=== PATIENT | female | born 1990 | race Caucasian/White ===

== ENCOUNTER 2017-04-22 11:57 | Emergency (ER) | payer OTHER ==
[2017-04-22 12:04] VITALS: RESP 16; TEMP 98.6
--- NOTE | 2017-04-22 12:12 | EDPHY ---
H & P Stated Complaint: pt states her iud is dislodged Time Seen by Provider: 04/22/17 12:05 HPI/ROS: CHIEF COMPLAINT: Possible IUD displacement HISTORY OF PRESENT ILLNESS: 27-year-old female with history of IUD placement in [place] in January 2017 states that for the past few days she feels that her IUD has been displaced, she is able to feel the hard tip of it outside of her cervix. She has also been complaining of abnormal vaginal discharge is foul smelling as well as suprapubic cramping. No urinary abnormality. Her symptoms have been occurring for the past 2-3 days. Patient also notes several days of vaginal itching and discharge. No vaginal bleeding. Not currently on her menstrual period. Back or flank pain. No nausea or vomiting. No dyspareunia REVIEW OF SYSTEMS: A ten point review of systems was performed and is negative with the exception of the items mentioned in the HPI PAST MEDICAL & SURGICAL HISTORY: IUD placement January 2017 SOCIAL HISTORY:nonsmoker PHYSICAL EXAM (Prior to examination, patient consented to physical exam, hands were washed and my usual and customary physical exam procedures followed) 1) GENERAL: Well-developed, well-nourished, alert and oriented. Appears to be in no acute distress. 2) HEAD: Normocephalic, atraumatic 3) HEENT: Sclera anicteric. 4) NECK: Full range of motion, no meningeal signs. 5) LUNGS: Clear auscultation bilaterally. 6) HEART: Regular rate and rhythm, no murmur, no heave, no gallop. 7) ABDOMEN: No guarding, no rebound, no focal tenderness, negative McBurney's, negative Joshi's, negative Rovsing's, negative peritoneal sign, unable to elicit any abdominal pain on exam 8) MUSCULOSKELETAL: No peripheral edema or discoloration. 9) BACK: No CVA tenderness,. 10) PELVIC (with female tech Emy at bedside): Normal female external genitalia, no lesions visualized. There is chunky white discharge. Speculum examination reveals erythematous route day, e, os closed, no cervical motion tenderness, no adnexal tenderness or mass, DIFFERENTIAL DIAGNOSIS: in no particular include but limited to tubo-ovarian abscess, displacement IUD, ovarian cyst, ovarian torsion, UTI - Personal History LMP (Females 10-55): IUD In Place Current Tetanus/Diphtheria Vaccine: Unsure - Medical/Surgical History Hx Asthma: Yes Hx Chronic Respiratory Disease: No Hx Diabetes: No Hx Cardiac Disease: No Hx Renal Disease: No Hx Cirrhosis: No Hx Alcoholism: No Hx HIV/AIDS: No Hx Splenectomy or Spleen Trauma: No Other PMH: denies - Social History Smoking Status: Never smoked Constitutional: Initial Vital Signs Temperature (C) 37 C 04/22/17 12:01 Heart Rate 84 04/22/17 12:01 Respiratory Rate 16 04/22/17 12:01 Blood Pressure 129/88 H 04/22/17 12:01 O2 Sat (%) 96 04/22/17 12:01 O2 Delivery Mode Room Air Allergies/Adverse Reactions: No Known Allergies Allergy (Unverified 04/22/17 12:00) Home Medications: Medication Instructions Recorded Albuterol 04/22/17 Fluconazole [Diflucan (*)] 150 mg PO ONCE #0 tab 04/22/17 Medical Decision Making - Diagnostics Imaging Results: Imaging Impressions Pelvic/Renal Ultrasound 04/22/17 12:09 Impression: 1. IUD is misplaced in the lower endocervical canal near the external os. Wings are not well visualized. 2. No adnexal masses, ovarian torsion, or significant free fluid. Findings and recommendations discussed with Emergency Department, Ron Cowan PA-C, at 1309 hours on April 22, 2017. Final report concurs with initial preliminary interpretation. ED Course/Re-evaluation: Case discussed with secondary supervising physician Dr. Sammy Chacon. Patient has been re-evaluated with serial examinations. She noted vaginal discharge which is itching. On exam I think her symptoms are more than likely secondary to acute yeast vaginitis. She will be given a prescription for Diflucan. Dip urinalysis and urine test are both negative. She is noted to have a dislodged intrauterine device. I do not think that emergent OBGYN consultation is indicated. Today is Monday. I have given her the name of on-call OBGYN. She also informs [facility] I recommend she keep this appointment. Recommend she use alternative forms of contraception the meantime. GC chlamydia wet prep swabs have been obtained and are currently pending at this time. Departure - Departure Disposition: Home, Routine, Self-Care Clinical Impression: Dislodged intrauterine device, Yeast vaginitis Condition: Good Instructions: Barrier Methods of Contraception (ED), Vulvovaginal Candidiasis ( ED) Additional Instructions: Use a secondary form of contraception. Referrals: Mary Clarke DO [Doctor of Osteopathy] - 2-3 days, call for appt. (Dr. Clarke is an OBGYN) Prescriptions: Fluconazole [Diflucan (*)] 150 mg PO ONCE #0 tab
[2017-04-22 14:11] VITALS: BP 127/78; PULSE 54; O2SAT 97
[2017-04-24 14:04] LABS: CHLAMYDIA AMPLIFICATION GENPRB NEGATIVE (NEGATIVE)
== END 2017-04-22 14:10 | disposition home or self-care (01) ==
DX: T83.32XA Displacement of intrauterine contraceptive device, initial encounter (principal); N76.0 Acute vaginitis; J45.909 Unspecified asthma, uncomplicated; Y82.8 Other medical devices associated with adverse incidents